=== PATIENT | male | born 1965 | race Caucasian/White ===

== ENCOUNTER → 2021-06-12 13:43 | Outpatient (CLI) | payer OTHER, SELFPAY ==
--- NOTE | 2021-06-12 13:49 | CT_ITS ---
PROCEDURE: CT CHEST WO/W CON CLINCAL INDICATION: SOB, SUPRACLAVICULAR LYMPHADENOPATHY COMPARISON: No exams were available for comparison TECHNIQUE: IV Contrast: 75ml Isovue 370 Axial images obtained with sagittal and coronal reformats. All CT scans at the facility use one or more dose reduction, viz: automated exposure control, ma/kV adjustment per patient size (including targeted exams where dose is matched to indication, i.e. head), or iterative reconstruction technique. FINDINGS: HEART AND MEDIASTINAL STRUCTURES: There are few small mediastinal lymph nodes. No mediastinal or hilar adenopathy or mass. No evidence of aortic aneurysm or dissection. No central pulmonary embolus. LUNGS AND PLEURAL SPACES: Atelectatic change versus scarring noted in the right lower lobe posteriorly calcified granuloma right lower lobe. Calcified right lymph node. No suspicious pulmonary nodules. BONY STRUCTURES: Multilevel mild degenerative changes in the thoracic spine with endplate irregularity and small Schmorl's nodes UPPER ABDOMEN: Mild haziness in the central mesenteric region of the upper abdomen with a few small nodes in this region. ADDITIONAL FINDINGS: There is an asymmetric prominent area of mostly fat density in the right infraclavicular area deep to the pectoralis muscles. This region measures approximately 5 by 4 by 6 cm consistent with a lipoma. This is however causing severe narrowing and possibly occlusion of the right subclavian vein. Scattered small nodes versus collateral vessels are noted in the right axilla. The right subclavian artery also appears somewhat compressed by this lesion showing severe narrowing in the infraclavicular area best seen on the coronal reformatted images.. The there are a few small septation within this lesion. No obvious enhancement or muscular or chest wall invasion. There is also asymmetric prominence of the fat in the right supraclavicular region posterior to the clavicle which is contiguous with the A4 mentioned fatty lesion in the infraclavicular region via the subcoracoid area anteriorly. The fatty area also extends posteriorly deep to the trapezius and supraspinatus muscle. IMPRESSION: 1. Asymmetric prominence of the fatty tissue in the right infraclavicular area deep to the pectoralis muscles and in the right supraclavicular region with apparent connection via the sub coracoid fat plane. 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 Suggest MRI without and with contrast for further evaluation. No chest wall invasion or bony invasion apparent. There is however severe narrowing versus occlusion of the right subclavian vein and severe narrowing of the right subclavian artery. 2. There are small nodes and small collateral vessels in the right axilla. No dominant adenopathy apparent. Dictated by: Richard Jeong MD 06/13/2021 07:53 Richard Jeong MD in [place] 06/13/2021 07:53
[2021-06-12 14:19] LABS: Basophils # 0.1 K/mm3 (0-0.2); Basophils % 0.6 % (0.1-2.0); Eosinophils # 0.9 K/mm3 (0.0-0.4); Eosinophils % 10.9 % (0.1-12.0); Hematocrit 44.1 % (42.0-52.0); Hemoglobin 15.3 g/dL (14.1-18.0); Lymphocytes # 2.3 K/mm3 (0.7-4.5); Lymphocytes % 28.1 % (10-50); Mean Corpuscular HGB Conc 34.6 g/dL (31.8-35.4); Mean Corpuscular Hemoglobin 30.1 pg (27.0-31.2); Mean Platelet Volume 7.8 fl (7.4-10.4); Monocytes # 0.6 K/mm3 (0.1-1.0); Monocytes % 7.2 % (1.7-9.3); Neutrophils # 4.4 K/mm3 (1.8-7.8); Neutrophils % 53.1 % (37.0-80.0); Platelet Count 267 K/mm3 (142-424); Red Blood Count 5.06 M/mm3 (4.60-6.20); Red Cell Distribution Width 13.1 % (11.5-17.5); White Blood Count 8.2 K/mm3 (4.8-10.8)
[2021-06-12 14:33] LABS: Alanine Aminotransferase 36 U/L (12-78); Albumin Level 4.5 g/dl (3.5-5.0); Albumin/Globulin Ratio 1.4 (1.1-1.8); Alkaline Phosphatase 84 U/L (38-126); Anion Gap 11.8 mEq/L (5-15); Aspartate Amino Transferase 37 U/L (17-59); Bilirubin,Total 0.3 mg/dl (0.2-1.3); Blood Urea Nitrogen 21 mg/dl (9-20); Calcium 9.8 mg/dl (8.4-10.2); Carbon Dioxide 30 mmol/L (22.0-30.0); Chloride 103 mmol/L (98-107); Estimated Glomerular Filt Rate 77 ml/min (>60); GFR (African American) 93 ML/MIN (>60); Globulin 3.2 g/dL (1.3-3.2); Glucose 97 mg/dl (74-100); Potassium 4.8 mmoL/L (3.5-5.1); Sodium 140 mmol/L (136-145); Total Protein,Serum 7.7 g/dl (6.3-8.2)
[2021-06-12 15:40] VITALS: PULSE 81; PULSE 84
== END ==
PROVIDERS: PCP Nurse Practitioner Family; Visit Provider Nurse Practitioner Family
DX: R06.02 Shortness of breath (principal); R59.0 Localized enlarged lymph nodes
CPT/HCPCS: 36415; 71270; 80053; 85025; 94060; 94640; 94726; 94729; Q9967

== ENCOUNTER → 2021-06-19 08:35 | Outpatient (CLI) | payer OTHER, SELFPAY ==
--- NOTE | 2021-06-19 08:40 | MR_ITS ---
PROCEDURE INFORMATION: Exam: MR Chest Without and With Contrast; Clavicle Exam date and time: 06/19/2021 8:40 AM Age: 56 years old Clinical indication: Pain; Right-sided; Additional info: Supraclavicular lymphandenopathy. Abnormal CT scan 06-12-21. 16ml prohance given. Lot: [id number] exp: Jan 2023 bun: 21 cre: 1.0 gfr: 77 TECHNIQUE: Imaging protocol: MR chest without and with intravenous contrast. Exam focused on the clavicle. Contrast material: PROHANCE; Contrast volume: 16 ml; Contrast route: IV; COMPARISON: CT CHEST WO/W CON 06/12/2021 2:53 PM FINDINGS: Bones/joints: Clavicle is unremarkable. Visualized bone is unremarkable. Soft tissues: Uniformly fatty signal mass is redemonstrated in the right infraclavicular region with occasional thin septations. This measures approximately 6 by 2 by 6 cm. No visualized nodular or enhancing component. Appearance is most consistent with a lipoma. This does have focal mass-effect upon the adjacent vasculature, particularly the right subclavian vein. Currently, the subclavian artery is not compressed, as it appeared on the comparison CT study. Other findings: Motion artifact is problematic on several sequences. IMPRESSION: 1. Motion artifact is problematic on several sequences. 2. Uniformly fatty signal mass is redemonstrated in the right infraclavicular region with occasional thin septations. This measures approximately 6 by 2 by 6 cm. No visualized nodular or enhancing component. Appearance is most consistent with a lipoma. 3. This does have focal mass-effect upon the adjacent vasculature, particularly the right subclavian vein. Currently, the subclavian artery is not compressed, as it appeared on the comparison CT study.
== END ==
PROVIDERS: PCP Nurse Practitioner Family; Visit Provider Nurse Practitioner Family
DX: R06.02 Shortness of breath (principal); R59.0 Localized enlarged lymph nodes
CPT/HCPCS: 71552; A9576

== ENCOUNTER → 2021-09-27 12:47 | Outpatient (CLI) | payer OTHER, SELFPAY ==
--- NOTE | 2021-09-27 12:51 | CT_ITS ---
FINAL REPORT TECHNIQUE: Axial images through the chest were performed by computed tomography before and after the administration of IV contrast. This study was performed with techniques to keep radiation doses as low as reasonably achievable, (ALARA). Individualized dose reduction techniques using automated exposure control or adjustment of mA and/or kV according to the patient's size were employed. CLINICAL HISTORY: RT CUPRACLAVICULAR MASS COMPARISON: June 12, 2021 and a report dated June 19, 2021 FINDINGS: There is no axillary adenopathy. There is no hilar or mediastinal adenopathy. The heart size is normal. There is no pericardial or pleural effusion. Limited images of the upper abdomen are unremarkable. No suspicious infiltrate or nodule identified. There is a calcified granuloma in the right lower lobe. There is mild scarring in the right lung base. Again noted is a right infra clavicular mass measuring 6 x 3.5 x 4.5 cm. This is not significantly changed in size and has imaging characteristics consistent with a lipoma. This mass causes mass effect on the right axillary and subclavian veins with moderate to severe narrowing with the arm in the upright position. No new mass is identified. There is no abnormal contrast enhancement. IMPRESSION: Again noted right infraclavicular mass which is not significantly changed in size and has characteristics consistent with a lipoma. Mass-effect on the right axillary and subclavian veins with moderate to severe narrowing with arm in the upright position. Reviewed, Interpreted and Dictated by Sha Callahan III, MD Transcribed by Dai Thomas Authenticated by Sha Callahan III, MD on 09/27/2021 02:34:19 PM [facility]
== END ==
PROVIDERS: PCP Nurse Practitioner Family; Visit Provider Thoracic Surgery (Cardiothoracic Vascular Surgery)
DX: R22.2 Localized swelling, mass and lump, trunk (principal)
CPT/HCPCS: 71270; Q9967

== ENCOUNTER 2023-10-24 16:00 | Outpatient (RCR) | payer OTHER, SELFPAY | END 2023-10-24 17:00 | disposition home or self-care (01) | LOC: PT 16:00 | PROVIDERS: Visit Provider Physician Assistant | DX: M54.9 Dorsalgia, unspecified (principal); M54.50 Low back pain, unspecified | CPT/HCPCS: 97110; 97112; 97163; 97164 ==